=== PATIENT | female | born 1950 | race Caucasian/White ===

== ENCOUNTER 2019-04-24 10:23 | Inpatient (IN) | payer OTHER ==
[2019-04-24] MEDS ORDERED: SODIUM CHLORIDE 1,000 ML IV STA (10:46)
--- NOTE | 2019-04-24 10:49 | PDOC ---
History of Present Illness - General Chief Complaint: Tachycardia Stated Complaint: SHAKEY Time Seen by Provider: 04/24/19 10:41 History Source: Patient Exam Limitations: No Limitations - History of Present Illness Initial Comments: 04/24/19 10:48 69 YOF with h/o HTN, CHF, hypokalemia, FUO presenting with acute onset weakness and shakes this morning while driving. had appt with Dr Caruso, could not make due to her profound symptoms. admits to being on courses of amoxicillin since for left gum/tooth infection/abscess. had similar presentation fever in 2016, fever attributed to dental procedure and referred outpatient for testing/echo, r/o endocarditis. Past medical history: Hypertension, CHF, hypokalemia Medications: Atenolol, Cozaar, furosemide, potassium, and recently amoxicillin ALLERGIES: None Social history: Patient lives alone but is active and cares for herself, no use of tobacco alcohol or nonprescription drugs. A good friend lives nearby and cares for patient in time of need Family history: Reviewed and noncontributory including early coronary artery disease, metabolic diseases including diabetes, cancer, rheumatologic or immunodeficient states. Review of systems Constitutional: +fevers or chills.+ weakness HEENT: no headache or dizziness. No congestion. No visual/hearing disturbances. CVS: no cp or syncope. Resp: no sob. No cough. Gastrointestinal: no abdominal pain, nausea or vomiting. Genitourinary: no urinary sx, hematuria. MUSCULOSKELETAL: No joint pain and swelling. No neck or back pain. SKIN: no redness or skin changes, no discharge, no rash. No wounds. Hematologic: no easy bruising/bleeding. NEUROLOGIC: No headache, dizziness, LOC or altered mental status. No weakness, numbness or tingling. Psych: no anxiety or depression Allergic/Immunologic: no allergies All other systems reviewed and negative, or as documented in HPI. Physical exam General: Well appearing, awake and alert, NAD. HEENT: NCAT, PERRL, EOMI, clear conjunctiva, anicteric, moist mucus membranes, clear oropharynx, no oral lesions.. Neck: neck supple, FROM Resp: CTAB, normal and even respirations, no respiratory distress CVS: irregularly irregular, +tachycardic, 2+ peripheral pulses throughout, no peripheral edema Abdomen: soft, NTND, no rebound or guarding. No CVAT. Back: nontender, normal inspection and ROM MSK: no edema, EM x4, ROM intact. No clubbing or cyanosis. normal bulk and tone. Extremities: no calf tenderness Neuro: alert, oriented appropriately; no focal neurologic deficits Psych: Calm and cooperative Skin: warm and well perfused, cap refill <2 sec, normal color 04/24/19 11:28 Past History - Past Medical History Allergies/Adverse Reactions: Allergies Allergy/AdvReac Type Severity Reaction Status Date / Time No Known Allergies Allergy Verified 04/24/19 10:34 Home Medications: Ambulatory Orders Amoxicillin - [Amoxicillin 500mg Capsule -] 500 mg PO TID 04/24/19 Anemia: No Asthma: No Cancer: No Cardiac Disorders: No CVA: No COPD: No CHF: No Dementia: No Diabetes: No GI Disorders: No Disorders: No HTN: Yes Hypercholesterolemia: No Liver Disease: No Seizures: No Thyroid Disease: No - Surgical History Abdominal Surgery: Yes (Laparoscopic Removal of Fallopian Tube 2001) Appendectomy: No Cardiac Surgery: No Cholecystectomy: No Lung Surgery: No Neurologic Surgery: No Orthopedic Surgery: No - Psycho Social/Smoking Cessation Hx Smoking History: Never smoked Have you smoked in the past 12 months: No Hx Alcohol Use: No Drug/Substance Use Hx: No Substance Use Type: None Hx Substance Use Treatment: No Heart Score/ECG Review #1 ECG reviewed & interpreted by me at: 10:35 Compared to previous ECG there are: Changes noted 04/24/19 11:26 EKG Afib RVR at 152 bpm, no interval abnormalities, narrow QRS, ST and T wave segments and morphology normal. Nonspecific T wave abnormalities - new ED Treatment Course - LABORATORY CBC & Chemistry Diagram: 04/24/19 10:40 04/24/19 11:30 - RADIOLOGY Radiology Studies Ordered: Category Date Time Status CHEST PA & LAT [RAD] Stat Radiology 04/24/19 10:46 Ordered Medical Decision Making - Critical Care Time Total Critical Care Time (minutes): 30 (atrial fibrillation RVR) Critical Care Statement: The care of this patient involved high complexity decision making to prevent further life threatening deterioration of the patient 's condition and/or to evaluate & treat vital organ system(s) failure or risk of failure. - Medical Decision Making 04/24/19 11:24 See HPI for details. Prior notes reviewed, including admissions, discharges and consultations. Vital signs reviewed, wnl. Vital Signs Temp Pulse Resp BP Pulse Ox 100.2 F H 148 H 14 110/80 98 04/24/19 10:31 04/24/19 10:50 04/24/19 10:50 04/24/19 10:50 04/24/19 10:50 ddx arrhythmia, new onset Afib, electrolyte/metabolic derangements, bacteremia, infection, pna, UTI, lyme laboratory results and imaging reviewed, basic labs and lytes wnl, UA_neg for infection, pend consult CXR_unremarkable Cardiac panel_neg EKG Afib RVR at 152 bpm, no interval abnormalities, narrow QRS, ST and T wave segments and morphology normal. Nonspecific T wave abnormalities - new ED course -interventions: tylenol, IVF new onset Afib RVR, rate control and anticoagulate. chads vasc score_3 (age, female, CHF history) also with fever, given antipyretics and IVF. prior echo in 2016, normal EF, no effusion, mild MR/valve calcification, no endocarditis. 04/24/19 12:39 - spoke with Dr Caruso, discussed case. agree w. admit to hospitalist service,w ill be away this week Dr Izquierdo consult for new onset Afib, recs AC and management Admit for new onset Afib/RVR and FUO. Discussed results and management plan with pt and family member at bedside, agree with impression, treatment indications, recommendations and plan. s/o to NATHANIEL Santoyo regarding admission,a bunny [facility] Discharge - Discharge Information Problems reviewed: Yes Clinical Impression/Diagnosis: Atrial fibrillation with RVR, Fever Condition: Good - Admission Yes - Follow up/Referral Referrals: Carlos Caruso MD [Primary Care Provider] - - Patient Discharge Instructions - Post Discharge Activity
[2019-04-24] MEDS ORDERED: ACETAMINOPHEN 325 MG TABLET (FP) PO ONE (11:26)
[2019-04-24 11:29] LABS: BASO % 0.7 % (0-2.0); EOS % 5.5 % (0-4.5); HEMOGLOBIN 15.6 GM/dl (10.7-15.3); LYMPH % 35.9 % (8-40); MCH 30.9 pg (25.7-33.7); MCHC 33.9 g/dl (32.0-36.0); MEAN CELL VOLUME 91.2 fl (80-96); MONO % 10.6 % (3.8-10.2); NEUT % 47.3 % (42.8-82.8); PLATELET COUNT 493 K/MM3 (134-434); RBC 5.04 M/mm3 (3.60-5.2); RDW 12.6 % (11.6-15.6); WHITE BLOOD COUNT 11.5 K/mm3 (4.0-10.8)
[2019-04-24] MEDS ORDERED: dilTIAZem HCL 50 MG/10 ML - 10 ML VIAL IVPUSH ONE ×2 (11:33→12:54)
[2019-04-24] MEDS ORDERED: ACETAMINOPHEN 325 MG TABLET (FP) ONE (11:34)
[2019-04-24] MEDS ORDERED: dilTIAZem HCL 50 MG/10 ML - 10 ML VIAL ONE (11:35)
[2019-04-24 11:51] LABS: INR 1.14 (0.82-1.09); PROTHROMBIN TIME (PATIENT) 12.7 SEC (10.2-13.0)
[2019-04-24 11:56] LABS: ALBUMIN 3.8 g/dl (3.4-5.0); BILIRUBIN,TOTAL 0.7 mg/dl (0.2-1); CALCIUM 8.7 mg/dl (8.5-10); CREATININE 0.8 mg/dl (0.55-1.3); MAGNESIUM 1.8 mg/dL (1.8-2.4); POTASSIUM 3.2 mmol/L (3.5-5.1); TOT PROT 6.9 g/dl (6.4-8.2)
[2019-04-24 12:28] LABS: EPITHELIAL CELLS FEW /hpf
[2019-04-24] MEDS ORDERED: dilTIAZem HCL 60 MG TABLET (FP) PO ONE (12:53)
[2019-04-24] MEDS ORDERED: dilTIAZem HCL 30 MG TABLET (FP) ONE (12:56)
--- NOTE | 2019-04-24 13:37 | HP ---
CHIEF COMPLAINT: Weakness, dental infection PCP: Dr. Caruso - last saw 2 1/2 years ago Dentist: Vy German Oral surgeon: [facility] HISTORY OF PRESENT ILLNESS 69 year-old female with a PMH significant for HTN, gum disease and dental abscesses. About a month ago patient could taste and feel fluid coming from an upper left tooth. The tooth is sometimes painful, and at times the pain radiates to the left ear. She has had intermittent episodes of sweats and chills. She sought the care of a dentist and an oral surgeon and she was prescribed a course of amoxicillin which she completed today (took half doses to make pills last longer). She is scheduled for removal of all of her remaining teeth on 05/29/19. This morning patient felt profoundly weak and experienced palpitations. She could barely stand which prompted her to come to the ED. Patient last saw her PCP Dr. Caruso about 2 1/2 years ago and has been off all regular prescription medications since (had been on atenolol, losartan, furosemide). She has never had a cardiac workup. Strong family cardiac history. 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 Smoking: never Alcohol: occasional Drugs: no Family history: Mother 81 AAA; father 80 COPD/emphysema; 1 sister 66 unknown causes; 2 sisters and 1 brother all with afib; son alive had TN and CABGx3 at age 37, now 50 Allergies No Known Allergies Allergy (Verified 04/24/19 10:34) HOME MEDICATIONS: Home Medications Medication Instructions Recorded Amoxicillin - [Amoxicillin 500mg 500 mg PO TID 04/24/19 Capsule -] REVIEW OF SYSTEMS CONSTITUTIONAL: +fatigue, weakness, sweats, chills Absent: diaphoresis, malaise, loss of appetite, weight change HEENT: +left upper tooth pain, left ear pain Absent: rhinorrhea, nasal congestion, throat pain, throat swelling, difficulty swallowing, mouth swelling, eye pain, visual changes CARDIOVASCULAR: +palpitations Absent: chest pain, syncope, palpitations, irregular heart rate, lightheadedness , peripheral edema RESPIRATORY: Absent: cough, shortness of breath, dyspnea with exertion, orthopnea, wheezing, stridor, hemoptysis GASTROINTESTINAL: Absent: abdominal pain, abdominal distension, nausea, vomiting, diarrhea, constipation, melena, hematochezia GENITOURINARY: Absent: dysuria, frequency, urgency, hesitancy, hematuria, flank pain, genital pain MUSCULOSKELETAL: Absent: myalgia, arthralgia, joint swelling, back pain, neck pain SKIN: Absent: rash, itching, pallor HEMATOLOGIC/IMMUNOLOGIC: Absent: easy bleeding, easy bruising, lymphadenopathy, frequent infections ENDOCRINE: Absent: unexplained weight gain, unexplained weight loss, heat intolerance, cold intolerance NEUROLOGIC: Absent: headache, focal weakness or paresthesias, dizziness, unsteady gait, seizure, mental status changes, bladder or bowel incontinence PSYCHIATRIC: Absent: anxiety, depression, suicidal or homicidal ideation, hallucinations. PHYSICAL EXAMINATION Vital Signs - 24 hr 04/24/19 04/24/19 04/24/19 10:31 10:50 11:00 Temperature 100.2 F H 100.1 F H Pulse Rate 153 H 139 H Pulse Rate [ 148 H Apical] Respiratory 15 14 15 Rate Blood Pressure 130/70 Blood Pressure 110/80 [Right Arm] O2 Sat by Pulse 98 98 98 Oximetry (%) 04/24/19 04/24/19 04/24/19 11:40 11:52 12:15 Temperature Pulse Rate Pulse Rate [ 136 H 130 H 144 H Apical] Respiratory 14 14 14 Rate Blood Pressure Blood Pressure 136/88 117/75 101/75 [Right Arm] O2 Sat by Pulse 96 96 97 Oximetry (%) 04/24/19 13:12 Temperature Pulse Rate Pulse Rate [ 98 H Apical] Respiratory 14 Rate Blood Pressure Blood Pressure 100/72 [Right Arm] O2 Sat by Pulse 96 Oximetry (%) GENERAL: Awake, alert, and fully oriented, in no acute distress. HEAD: Normal with no signs of trauma. EYES: Pupils equal, round and reactive to light, extraocular movements intact, sclera anicteric, conjunctiva clear. No lid lag. EARS, NOSE, THROAT: Six upper teeth; far left tooth swelling at gum line, no exudate seen; two lower dental implants LUNGS: Breath sounds equal, clear to auscultation bilaterally. No wheezes, and no crackles. No accessory muscle use. HEART: Irregular, S1, S2 ABDOMEN: Soft, nontender, not distended MUSCULOSKELETAL: Normal range of motion at all joints. No bony deformities or tenderness. No CVA tenderness. UPPER EXTREMITIES: 2+ pulses, warm, well-perfused. No cyanosis. No clubbing. No peripheral edema. LOWER EXTREMITIES: 2+ pulses, warm, well-perfused. No calf tenderness. No peripheral edema. NEUROLOGICAL: Cranial nerves II-XII intact. Normal speech. SKIN: Warm, dry, normal turgor Laboratory Results - last 24 hr 04/24/19 04/24/19 04/24/19 10:40 10:40 11:15 WBC 11.5 H RBC 5.04 Hgb 15.6 H Hct 46.0 H MCV 91.2 MCH 30.9 MCHC 33.9 RDW 12.6 Plt Count 493 H MPV 8.0 Absolute Neuts (auto) 5.5 Neutrophils % 47.3 Lymphocytes % 35.9 Monocytes % 10.6 H Eosinophils % 5.5 H Basophils % 0.7 PT with INR INR PTT (Actin FS) Sodium Potassium Chloride Carbon Dioxide Anion Gap BUN Creatinine Est GFR (CKD-EPI)AfAm Est GFR (CKD-EPI)NonAf Random Glucose Calcium Magnesium Total Bilirubin AST ALT Alkaline Phosphatase Troponin I < 0.03 Total Protein Albumin Urine Color Yellow Urine Appearance Clear Urine pH 5.5 Urine Protein Trace Urine Glucose (UA) Negative Urine Ketones 2+ H Urine Blood 1+ H Urine Nitrite Negative Urine Bilirubin 1+ H Urine Urobilinogen 0.2 Ur Leukocyte Esterase Negative Urine RBC 2-5 Urine WBC 0-2 Ur Transition Epith Cell Few 04/24/19 04/24/19 04/24/19 11:30 11:30 11:30 WBC RBC Hgb Hct MCV MCH MCHC RDW Plt Count MPV Absolute Neuts (auto) Neutrophils % Lymphocytes % Monocytes % Eosinophils % Basophils % PT with INR 12.7 INR 1.14 PTT (Actin FS) 25.8 Sodium 138 Potassium 3.2 L Chloride 104 Carbon Dioxide 22 Anion Gap 12 BUN 15.0 Creatinine 0.8 Est GFR (CKD-EPI)AfAm 85.97 Est GFR (CKD-EPI)NonAf 74.17 Random Glucose 109 H Calcium 8.7 Magnesium 1.8 Total Bilirubin 0.7 AST 19 ALT 17 Alkaline Phosphatase 49 Troponin I Total Protein 6.9 Albumin 3.8 Urine Color Urine Appearance Urine pH Urine Protein Urine Glucose (UA) Urine Ketones Urine Blood Urine Nitrite Urine Bilirubin Urine Urobilinogen Ur Leukocyte Esterase Urine RBC Urine WBC Ur Transition Epith Cell ASSESSMENT/PLAN: 69 year-old female with a PMH significant for HTN, gum disease and dental abscesses. Admitted for newly diagnosed atrial fibrillation with RVR and possible dental abscess. Atrial fibrillation with RVR --ECG: afib @ 152bpm --treated in ED with diltiazem IVP 10mg x 1 and 20mg x 1; and diltiazem PO 60mg x 1 --rate is now in 90s, BP has remained stable --continue diltiazem 30mg q6h --troponin neg x 1, two pending --last echo 2016: LV normal, EF 58%; RV normal; mild MR; mild TR; will get repeat --telemetry monitoring --serial ECGs --start Eliquis 5mg BID Hypertension --on no anti-hypertensives for 2 years --BP stable Possible dental abscess --patient feels tooth is still draining, continues to have intermittent sweats, chills; weakness --CT facial bones with contrast done, pending dictation --start empiric Zosyn and IV clinda --ID following Hypokalemia Hypomagnesemia --repleted --keep K>4, Mg>2 FEN Fluids: PO intake adequate Electrolytes: replete as indicated Nutrition: low sodium DVT prophylaxis: on Eliquis Physical therapy Dispo: continues to require inpatient care. Full code. Visit type - Emergency Visit Emergency Visit: Yes ED Registration Date: 04/24/19 Care time: The patient presented to the Emergency Department on the above date and was hospitalized for further evaluation of their emergent condition. - New Patient This patient is new to me today: Yes Date on this admission: 04/24/19 - Critical Care Critical Care patient: No
[2019-04-24] MEDS ORDERED: CLINDAMYCIN PHOSPHATE 300 MG/2 ML VIAL ONE (14:33)
[2019-04-24] MEDS ORDERED: PIPERACILLIN/TAZOBACTAM 3.375 GM VIAL IVPB ONE ×2 (14:34→17:41)
[2019-04-24] MEDS: CLINDAMYCIN 300 MG PREMIX IVPB 300 MG/50 ML BAG IVPB SCH ×3 (14:35→22:58)
[2019-04-24] MEDS: PIPERACILLIN/TAZOB 3.375 GM 3.375 GM in DEXTROSE 5%-WATER - 50 ML IVPB SCH ×3 (15:40→22:59)
[2019-04-24] MEDS ORDERED: MAGNESIUM SULF 50% (8.12 MEQ/2 ML-1 GM VIAL) IVPB ONE (15:42)
[2019-04-24] MEDS: APIXABAN 5 MG TABLET PO SCH ×2 (16:13→21:12)
[2019-04-24] MEDS: POTASSIUM CHLORIDE ORAL LIQUID 20 MEQ/15 ML PO SCH ×2 (16:13→21:12)
--- NOTE | 2019-04-24 16:27 | CON.CARD ---
Consult Consult Specialty:: Cardiology Referred by:: Hospitalist Medicine Reason for Consultation:: Rapid afib - History of Present Illness Chief Complaint: Weakness and dental infection History of Present Illness: PCP: Dr. Caruso - last saw 2 1/2 years ago Dentist: Vy German Oral surgeon: Dr. Pacheco [facility] HISTORY OF PRESENT ILLNESS 69 year-old female with a PMH significant for HTN, gum disease and dental abscesses. Starting about a month ago patient could taste and feel pus coming from an upper left tooth. The tooth is sometimes painful, and at times the pain radiates to the left ear. She has had intermittent episodes of sweats, fevers, malaise and chills. She sought the care of a dentist and an oral surgeon and she was prescribed a course of amoxicillin which she completed today (took half doses to make pills last longer). She is scheduled for removal of all of her remaining teeth on 05/29/19. This morning patient felt profoundly weak and experienced palpitations, denies chest pain, near or true syncope, orthopnea, PND or LE edema. She could barely stand which prompted her to come to the ED. Patient last saw her PCP Dr. Caruso about 2 1/2 years ago and has been off all regular prescription medications since (had been on atenolol, losartan, furosemide). She has never had a cardiac workup. Strong family cardiac history. ER course was notable for: (1) T 100.2 (2) ECG: afib @ 152bpm (3) K3.2, Mg 1.8 - History Source History Provided By: Patient Limitations to Obtaining History: No Limitations - Alcohol/Substance Use Hx Alcohol Use: No - Smoking History Smoking history: Never smoked Have you smoked in the past 12 months: No Home Medications - Allergies Allergies/Adverse Reactions: Allergies Allergy/AdvReac Type Severity Reaction Status Date / Time No Known Allergies Allergy Verified 04/24/19 10:34 - Home Medications Home Medications: Ambulatory Orders Amoxicillin - [Amoxicillin 500mg Capsule -] 500 mg PO TID 04/24/19 Review of Systems - Review of Systems Constitutional: reports: Fever, Lethargy, Loss of Appetite, Night Sweats, Weakness Cardiovascular: reports: Palpitations Vital Signs: Vital Signs Temperature 100.1 F H 04/24/19 11:00 Pulse Rate 94 H 04/24/19 15:35 Respiratory Rate 17 04/24/19 15:35 Blood Pressure 106/59 L 04/24/19 15:35 O2 Sat by Pulse Oximetry (%) 98 04/24/19 15:35 Constitutional: Yes: No Distress, Calm, Thin Neck: Yes: Supple Respiratory: Yes: Regular, CTA Bilaterally Gastrointestinal: Yes: Normal Bowel Sounds, Soft Cardiovascular: Yes: Tachycardia, Pulse Irregular JVD: No Carotid Bruit: No Heart Sounds: Yes: S1, S2 Murmur: Yes: Systolic Murmur, Grade 1 Edema: No - Other Data Labs, Other Data: CBC, BMP 04/24/19 10:40 04/24/19 11:30 INR, PTT INR 1.14 (0.82-1.09) 04/24/19 11:30 Troponin, BNP 04/24/19 10:40 Troponin I < 0.03 Troponin, BNP 04/24/19 10:40 Troponin I < 0.03 Afib @ 152 with rate-related ST changes Tele: Rate-controlled afib Echo: Pending Imaging - Results Chest X-ray: Report Reviewed (NAD) Problem List - Problems (1) Dental infection Code(s): K04.7 - PERIAPICAL ABSCESS WITHOUT SINUS (2) Hypertensive heart disease Code(s): I11.9 - HYPERTENSIVE HEART DISEASE WITHOUT HEART FAILURE Qualifiers: Heart failure presence: without heart failure Qualified Code(s): I11.9 - Hypertensive heart disease without heart failure (3) Atrial fibrillation with RVR Code(s): I48.91 - UNSPECIFIED ATRIAL FIBRILLATION (4) Fever Code(s): R50.9 - FEVER, UNSPECIFIED Qualifiers: Fever type: unspecified Qualified Code(s): R50.9 - Fever, unspecified Assessment/Plan echo 2016: LV normal, EF 58%; RV normal; mild MR; mild TR 1. Newly diagnosed afib with RVR [id number] = 3 2. Dental infection 3. Hypertension P:1. Ruled out for [place], f/u echo to assess ventricular and valve fxn, TSH, lipid panel 2. Lopressor 25 bid and Cardizem IV as needed for rate-control, agree with starting Eliquis 5 bid given elevated risk score, eventual resumption of ARB as hemodynamics tolerate 3. Empiric abx f/u C&S 4. Replete K and Mg as you are 5. Thank you for consultative opportunity
[2019-04-24 17:02] VITALS: BMI 24.7
[2019-04-24] MEDS ORDERED: DEXTROSE 5%-WATER - 50 ML IVPB ONE (17:41)
[2019-04-24] MEDS ORDERED: dilTIAZem HCL 50 MG/10 ML - 10 ML VIAL IVPUSH PRN (17:58)
[2019-04-24] MEDS ORDERED: dilTIAZem HCL 30 MG TABLET (FP) PO SCH (18:00)
[2019-04-24] MEDS: METOPROLOL TARTRATE 25 MG TABLET (FP) PO SCH (21:12)
[2019-04-25] MEDS ORDERED: DEXTROSE 5%-WATER - 50 ML IVPB ONE ×3 (05:18→19:46)
[2019-04-25] MEDS ORDERED: PIPERACILLIN/TAZOBACTAM 3.375 GM VIAL IVPB ONE ×3 (05:18→19:45)
--- NOTE | 2019-04-25 06:19 | PN ---
Progress Note (short form) - Note Progress Note: Chief Complaint: Events noted, notes reviewed, continues to report mouth discomfort but improved, reports dyspnea with exertion, denies any chest pain, currently in sinus rhythm/converted to sinus rhythm History of Present Illness: Seen and examined on telemetry. Events noted, notes reviewed, continues to report mouth discomfort but improved, reports dyspnea with exertion, denies any chest pain, currently in sinus rhythm/converted to sinus rhythm - Current Medication List Current Medications Apixaban (Eliquis -) 5 mg PO BID [facility] Last Admin: 04/24/19 21:12 Dose: 5 mg Diltiazem HCl (Cardizem Injection -) 10 mg IVPUSH Q4H PRN PRN Reason: TACHYCARDIA Piperacillin Sod/Tazobactam (Sod 3.375 gm/ Dextrose) 50 mls @ 100 mls/hr IVPB Q8H [facility]; Protocol Last Admin: 04/24/19 22:59 Dose: 100 mls/hr Clindamycin Phosphate (Cleocin 300 Mg Premix Ivpb) 300 mg in 50 mls @ 100 mls/ hr IVPB Q8H [facility]; Protocol Last Admin: 04/24/19 22:58 Dose: 100 mls/hr Metoprolol Tartrate (Lopressor -) 25 mg PO BID [facility] Last Admin: 04/24/19 21:12 Dose: 25 mg Review of Systems Constitutional: denies: Chills, Fever Cardiovascular: as noted above Respiratory: denies: Cough or Sputum Production Gastrointestinal: denies: Nausea, Vomiting, Diarrhea, Constipation or Abdominal Pain Genitourinary: denies: Dysuria, Hematuria - Objective Vital Signs: Last Vital Signs Temp Pulse Resp BP Pulse Ox 99.1 F 94 H 18 120/63 97 04/25/19 05:55 04/25/19 05:55 04/25/19 05:55 04/25/19 05:55 04/25/19 05:55 Intake & Output 04/22/19 04/23/19 04/24/19 04/25/19 23:59 23:59 23:59 23:59 Intake Total 1600 300 Balance 1600 300 Weight 144 lb 0.002 oz Neck: Supple Negative JVD No Bruit Cardiovascular: S1 S2 Regular Rate Rhythm no Murmur, Clicks or Gallops Respiratory: Clear to A&P Bilaterally Gastrointestinal: Soft Benign Normal Bowel Sounds Ext: Negative Edema Labs: Troponin, BNP 04/24/19 04/24/19 04/24/19 10:40 16:00 16:00 Troponin I < 0.03 < 0.03 B-Natriuretic Peptide 435.6 H 04/24/19 22:00 Troponin I < 0.03 B-Natriuretic Peptide CBC, BMP 04/24/19 10:40 04/24/19 11:30 Hepatic Panel Total Bilirubin 0.7 mg/dl (0.2-1) 04/24/19 11:30 AST 19 U/L (15-37) 04/24/19 11:30 ALT 17 U/L (13-61) 04/24/19 11:30 Alkaline Phosphatase 49 U/L (45-117) 04/24/19 11:30 Albumin 3.8 g/dl (3.4-5.0) 04/24/19 11:30 INR, PTT INR 1.14 (0.82-1.09) 04/24/19 11:30 Assessment/Plan ASSESSMENT: 1. Paroxysmal atrial fibrillation currently in sinus rhythm post spontaneous conversion, [id number] score of 3 on DOAC's/Eliquis 2. Hypertensive cardiovascular disease, at goal 3. Dental infection on antibiotics PLAN: 1. Continue Lopressor 2. Continue Eliquis at the current dosage 3. If recurrent arrhythmia anti-arrhythmic therapy may need to be initiated- anti-arrhythmic selection pending LVEF measurement 4. Antibiotics as per the primary team 5. Await echocardiography study, if LV function/LVEF is normal and no significant valvular pathology noted, patient can be D/C home with outpatient followup in our office for additional evaluation, discussed in detail with the patient Cristi Chavez MD
[2019-04-25] MEDS: PIPERACILLIN/TAZOB 3.375 GM 3.375 GM in DEXTROSE 5%-WATER - 50 ML IVPB SCH ×3 (06:58→23:00)
[2019-04-25] MEDS: CLINDAMYCIN 300 MG PREMIX IVPB 300 MG/50 ML BAG IVPB SCH ×3 (06:58→22:51)
[2019-04-25 08:13] LABS: ALBUMIN 3.4 g/dl (3.4-5.0); BILIRUBIN,TOTAL 0.7 mg/dl (0.2-1); CALCIUM 8.3 mg/dl (8.5-10); CREATININE 0.8 mg/dl (0.55-1.3); MAGNESIUM 2.1 mg/dL (1.8-2.4); POTASSIUM 4.2 mmol/L (3.5-5.1)
[2019-04-25 08:16] LABS: CHOLESTEROL 163 mg/dl (50-200); HDL CHOLESTEROL 40 mg/dl (40-60); TRIGLYCERIDES 84 mg/dl (0-150)
[2019-04-25 08:20] LABS: BASO % 0.6 % (0-2.0); EOS % 8.3 % (0-4.5); HEMATOCRIT 41.7 % (32.4-45.2); HEMOGLOBIN 13.9 GM/dl (10.7-15.3); LYMPH % 38.2 % (8-40); MCH 30.5 pg (25.7-33.7); MCHC 33.3 g/dl (32.0-36.0); MEAN CELL VOLUME 91.7 fl (80-96); MEAN PLT VOLUME 7.8 fl (7.5-11.1); NEUT % 42.9 % (42.8-82.8); PLATELET COUNT 452 K/MM3 (134-434); RBC 4.55 M/mm3 (3.60-5.2); RDW 12.6 % (11.6-15.6)
[2019-04-25 08:50] LABS: LDL CHOLESTEROL (ONLY SJRH) 106 mg/dL (5-100)
[2019-04-25] MEDS: METOPROLOL TARTRATE 25 MG TABLET (FP) PO SCH ×2 (08:59→21:18)
[2019-04-25] MEDS: APIXABAN 5 MG TABLET PO SCH ×2 (09:00→21:18)
[2019-04-25] MEDS ORDERED: PNEUMOC 13-VAL CONJ-DIP CRM/PF 0.5 ML DISP.SYRIN IM ONE (09:07)
[2019-04-25] MEDS ORDERED: FLU VACCINE QUAD 60 MCG/0.5 ML (MDV 19-20) IM ONE (10:30)
--- NOTE | 2019-04-25 12:18 | EKG ---
Test Reason : Blood Pressure : / mmHG Vent. Rate : 152 BPM Atrial Rate : 125 BPM P-R Int : 000 ms QRS Dur : 082 ms QT Int : 336 ms P-R-T Axes : 000 016 265 degrees QTc Int : 534 ms POOR DATA QUALITY, INTERPRETATION MAY BE ADVERSELY AFFECTED ATRIAL FIBRILLATION WITH RAPID VENTRICULAR RESPONSE ABNORMAL ECG NO PREVIOUS ECGS AVAILABLE Confirmed by Doc Campbell ([id number]) on 04/25/2019 12:18:35 PM Referred By: Confirmed By:Doc Campbell
--- NOTE | 2019-04-25 15:04 | PN ---
Progress Note, Physician - Current Medication List Current Medications: Active Medications Apixaban (Eliquis -) 5 mg PO BID [facility] Last Admin: 04/25/19 09:00 Dose: 5 mg Diltiazem HCl (Cardizem Injection -) 10 mg IVPUSH Q4H PRN PRN Reason: TACHYCARDIA Piperacillin Sod/Tazobactam (Sod 3.375 gm/ Dextrose) 50 mls @ 100 mls/hr IVPB Q8H [facility]; Protocol Last Admin: 04/25/19 14:30 Dose: 100 mls/hr Clindamycin Phosphate (Cleocin 300 Mg Premix Ivpb) 300 mg in 50 mls @ 100 mls/ hr IVPB Q8H [facility]; Protocol Last Admin: 04/25/19 14:29 Dose: 100 mls/hr Metoprolol Tartrate (Lopressor -) 25 mg PO BID [facility] Last Admin: 04/25/19 08:59 Dose: 25 mg - Objective Vital Signs: Vital Signs Temperature 99.5 F 04/25/19 14:37 Pulse Rate 89 04/25/19 14:37 Respiratory Rate 16 04/25/19 14:37 Blood Pressure 97/60 04/25/19 14:37 O2 Sat by Pulse Oximetry (%) 95 04/25/19 14:37 Labs: CBC, BMP 04/25/19 07:00 04/25/19 07:00 INR, PTT INR 1.14 (0.82-1.09) 04/24/19 11:30
--- NOTE | 2019-04-25 15:15 | ECHO ---
Name: MAMTA AVERY Exam:Adult Echocardiogram Study Date: 04/25/2019 01:57 PM Age: 69 yrs Reason For Study: R/O Endocarditis Height: 64 in Weight: 141 lb BSA: 1.7 m2 MMode/2D Measurements & Calculations IVSd: 1.2 cm Ao root diam: 3.0 cm LVIDd: 4.4 cm LA dimension: 2.6 cm LVIDs: 2.9 cm LVPWd: 0.94 cm EDV(Teich): 85.8 ml LVOT diam: 2.0 cm ESV(Teich): 31.8 ml Doppler Measurements & Calculations MV E max faisal: 78.0 cm/sec MV A max faisal: 51.6 cm/sec MV dec slope: 477.7 cm/sec2 MV E/A: 1.5 Ao V2 max: 126.9 cm/sec LV V1 max P.0 mmHg Ao max P.4 mmHg LV V1 max: 112.2 cm/sec CARLOS(V,D): 2.7 cm2 MR max faisal: 292.1 cm/sec TR max faisal: 218.0 cm/sec MR max P.1 mmHg TR max P.2 mmHg PA V2 max: 73.3 cm/sec PI end-d faisal: 89.0 cm/sec PA max P.1 mmHg Left Ventricle The left ventricular size, thickness and function are normal. Right Ventricle The right ventricular systolic function is normal. Atria Normal left and right atrial size and function. Mitral Valve The mitral valve is normal in structure and function. There is trace mitral regurgitation. Tricuspid Valve The tricuspid valve is normal. There is mild tricuspid regurgitation. Aortic Valve The aortic valve is normal in structure and function. Pulmonic Valve The pulmonic valve is not well seen, but is grossly normal. Great Vessels The aortic root is normal size. Pericardium/Pleura There is no pericardial effusion. Interpretation Summary The left ventricular size, thickness and function are normal The right ventricular systolic function is normal. Normal left and right atrial size and function. The mitral valve is normal in structure and function. There is trace mitral regurgitation. The tricuspid valve is normal. There is mild tricuspid regurgitation. The aortic valve is normal in structure and function. The pulmonic valve is not well seen, but is grossly normal. The aortic root is normal size. There is no pericardial effusion. EF 63% PASP 35 mmHg MD Tejinder Garcia 04/25/2019 03:15 PM
--- NOTE | 2019-04-25 15:18 | PN ---
Physical Exam: SUBJECTIVE: Patient seen and examined at bedside. Feels like she has a fever. OBJECTIVE: Vital Signs Period Temp Pulse Resp BP Sys/Wall Pulse Ox Last 24 Hr 98.8 F-99.5 F 74-94 16-18 97-137/59-79 95-98 GENERAL: The patient is awake, alert, and fully oriented, in no acute distress. HEAD: Normal with no signs of trauma. EYES: PERRL, extraocular movements intact, sclera anicteric, conjunctiva clear. No ptosis. ENT: Ears normal, nares patent, oropharynx clear without exudates, moist mucous membranes. NECK: Trachea midline, full range of motion, supple. LUNGS: Breath sounds equal, clear to auscultation bilaterally, no wheezes, no crackles, no accessory muscle use. HEART: Regular rate and rhythm, S1, S2 without murmur, rub or gallop. ABDOMEN: Soft, nontender, nondistended, normoactive bowel sounds, no guarding, no rebound, no hepatosplenomegaly, no masses. EXTREMITIES: 2+ pulses, warm, well-perfused, no edema. NEUROLOGICAL: Cranial nerves II through XII grossly intact. Normal speech, gait not observed. PSYCH: Normal mood, normal affect. SKIN: Warm, dry, normal turgor, no rashes or lesions noted Laboratory Results - last 24 hr 04/24/19 04/24/19 04/24/19 11:30 16:00 16:00 WBC RBC Hgb Hct MCV MCH MCHC RDW Plt Count MPV Absolute Neuts (auto) Neutrophils % Lymphocytes % Monocytes % Eosinophils % Basophils % Sodium Potassium Chloride Carbon Dioxide Anion Gap BUN Creatinine Est GFR (CKD-EPI)AfAm Est GFR (CKD-EPI)NonAf Random Glucose Calcium Magnesium Total Bilirubin AST ALT Alkaline Phosphatase Troponin I < 0.03 B-Natriuretic Peptide 435.6 H Total Protein Albumin Triglycerides Cholesterol Total LDL Cholesterol HDL Cholesterol TSH 1.12 04/24/19 04/25/19 04/25/19 22:00 07:00 07:00 WBC 8.0 RBC 4.55 Hgb 13.9 Hct 41.7 MCV 91.7 MCH 30.5 MCHC 33.3 RDW 12.6 Plt Count 452 H MPV 7.8 Absolute Neuts (auto) 3.5 Neutrophils % 42.9 Lymphocytes % 38.2 Monocytes % 10.0 Eosinophils % 8.3 H Basophils % 0.6 Sodium 139 Potassium 4.2 Chloride 108 H Carbon Dioxide 25 Anion Gap 6 L BUN 8.0 Creatinine 0.8 Est GFR (CKD-EPI)AfAm 85.97 Est GFR (CKD-EPI)NonAf 74.17 Random Glucose 123 H Calcium 8.3 L Magnesium 2.1 Total Bilirubin 0.7 AST 20 ALT 17 Alkaline Phosphatase 43 L Troponin I < 0.03 B-Natriuretic Peptide Total Protein 6.0 L Albumin 3.4 Triglycerides Cholesterol Total LDL Cholesterol HDL Cholesterol TSH 04/25/19 07:00 WBC RBC Hgb Hct MCV MCH MCHC RDW Plt Count MPV Absolute Neuts (auto) Neutrophils % Lymphocytes % Monocytes % Eosinophils % Basophils % Sodium Potassium Chloride Carbon Dioxide Anion Gap BUN Creatinine Est GFR (CKD-EPI)AfAm Est GFR (CKD-EPI)NonAf Random Glucose Calcium Magnesium Total Bilirubin AST ALT Alkaline Phosphatase Troponin I B-Natriuretic Peptide Total Protein Albumin Triglycerides 84 Cholesterol 163 Total LDL Cholesterol 106 H HDL Cholesterol 40 TSH Active Medications Generic Name Dose Route Start Last Admin Trade Name Freq PRN Reason Stop Dose Admin Apixaban 5 mg 04/24/19 15:45 04/25/19 09:00 Eliquis - PO 5 mg BID GIGI Administration Diltiazem HCl 10 mg 04/24/19 17:58 Cardizem Injection - IVPUSH Q4H PRN TACHYCARDIA Piperacillin Sod/Tazobactam 50 mls @ 100 mls/hr 04/24/19 23:30 04/25/19 14:30 Sod 3.375 gm/ Dextrose IVPB 100 mls/hr Q8H GIGI Administration Protocol Clindamycin Phosphate 300 mg in 50 mls @ 100 mls/hr 04/24/19 22:30 04/25/19 14:29 Cleocin 300 Mg Premix Ivpb IVPB 100 mls/hr Q8H GIGI Administration Protocol Metoprolol Tartrate 25 mg 04/24/19 22:00 04/25/19 08:59 Lopressor - PO 25 mg BID GIGI Administration ASSESSMENT/PLAN 69 year-old female with a PMH significant for HTN, gum disease and dental abscesses. Admitted for newly diagnosed atrial fibrillation with RVR and possible dental abscess. Atrial fibrillation with RVR --ECG: afib @ 152bpm on admission, converted to sinus rhythm --diltiazem d/c'd, continue lopressor 25mg BID --troponin neg x 3 --2015 Echo: LV normal, EF 58%; RV normal; mild MR; mild TR; repeat echo done pending read --telemetry monitoring --continue Eliquis 5mg BID for [id number] score of 3 Hypertension --on no anti-hypertensives for 2 years --BP stable --continue lopressor Possible dental abscess --CT facial bones: no abscess --afebrile 24 hours, leukocytosis resolved --continue empiric Zosyn and IV clinda pending cultures --ID following FEN Fluids: PO intake adequate Electrolytes: replete as indicated Nutrition: low sodium DVT prophylaxis: on Eliquis Physical therapy Dispo: continues to require inpatient care. Full code. Visit type - Emergency Visit Emergency Visit: Yes ED Registration Date: 04/24/19 Care time: The patient presented to the Emergency Department on the above date and was hospitalized for further evaluation of their emergent condition. - New Patient This patient is new to me today: No - Critical Care Critical Care patient: No
--- NOTE | 2019-04-25 16:00 | EKG ---
Test Reason : Blood Pressure : / mmHG Vent. Rate : 081 BPM Atrial Rate : 081 BPM P-R Int : 206 ms QRS Dur : 084 ms QT Int : 422 ms P-R-T Axes : 061 -08 073 degrees QTc Int : 490 ms NORMAL SINUS RHYTHM NONSPECIFIC T WAVE ABNORMALITY ABNORMAL ECG WHEN COMPARED WITH ECG OF 24-APR-2019 10:36, SINUS RHYTHM HAS REPLACED ATRIAL FIBRILLATION VENT. RATE HAS DECREASED BY [address] NO LONGER DEPRESSED IN INFERIOR LEADS ST NO LONGER DEPRESSED IN ANTEROLATERAL LEADS T WAVE INVERSION NO LONGER EVIDENT IN INFERIOR LEADS NONSPECIFIC T WAVE ABNORMALITY NOW EVIDENT IN ANTERIOR LEADS Confirmed by MD Jose, Tejinder ([id number]) on 04/25/2019 3:59:58 PM Referred By: Tino MADDOX Confirmed By:Tejinder Garcia MD
[2019-04-26] MEDS ORDERED: PIPERACILLIN/TAZOBACTAM 3.375 GM VIAL IVPB ONE (05:49)
[2019-04-26] MEDS ORDERED: DEXTROSE 5%-WATER - 50 ML IVPB ONE (05:49)
[2019-04-26] MEDS: CLINDAMYCIN 300 MG PREMIX IVPB 300 MG/50 ML BAG IVPB SCH (05:52)
[2019-04-26 06:18] VITALS: BP 140/74; PULSE 83; TEMP 98.8
[2019-04-26] MEDS: PIPERACILLIN/TAZOB 3.375 GM 3.375 GM in DEXTROSE 5%-WATER - 50 ML IVPB SCH (06:29)
[2019-04-26] MEDS: METOPROLOL TARTRATE 25 MG TABLET (FP) PO SCH (09:20)
[2019-04-26] MEDS: APIXABAN 5 MG TABLET PO SCH (09:20)
== END 2019-04-26 12:38 | disposition home or self-care (01) ==
LOC: FER 10:23 → FM/S 12:51
PROVIDERS: ADMIT Internal Medicine; ATTEND Nurse Practitioner Acute Care
DX: I48.91 Unspecified atrial fibrillation (principal); R53.83 Other fatigue; N39.0 Urinary tract infection, site not specified
CPT/HCPCS: 36415; 70487-TC; 71046-TC-FY; 80053; 80061; 81003; 81015; 83721; 83735; 83880; 84443; 84484; 85025; 85610; 85730; 86618; 87040; 87086; 87186; 93005; 93306-TC; 97116-GP; 97162-GP; 99285-25; J7030; Q2036

== ENCOUNTER 2023-07-11 10:31 | Emergency (ER) | payer OTHER ==
[2023-07-11 10:44] VITALS: BP 166/90; PULSE 80; RESP 18; TEMP 98.6; BMI 27.4
[2023-07-11] MEDS ORDERED: DIPHTH,PERTUSS(ACELL),TET 0.5 ML DISP.SYRIN IM ONE (11:26)
[2023-07-11] MEDS ORDERED: TETANUS AND DIPHTHERIA TOXOID 0.5 ML DISP.SYRIN IM ONE (12:06)
== END 2023-07-11 12:47 | disposition home or self-care (01) ==
LOC: FER 10:31
PROC: 0HQGXZZ Repair Left Hand Skin, External Approach (ICD-10-PCS; principal; 2023-07-11)
DX: S61.412A Laceration without foreign body of left hand, initial encounter (principal); M79.642 Pain in left hand; W01.0XXA Fall on same level from slipping, tripping and stumbling without subsequent striking against object, initial encounter; Y93.01 Activity, walking, marching and hiking
CPT/HCPCS: 73110-TC-LT-FY; 73110-TC-RT-FY; 73130-TC-LT-FY; 73130-TC-RT-FY; 99283-25